=== PATIENT | female | born 1975 | race Caucasian/White ===

== ENCOUNTER 2021-01-14 13:37 | Emergency (ER) | payer SELFPAY ==
[~2021-01-14] VITALS: Ht 167.6 cm; Wt 68.9 kg
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
--- NOTE | 2021-01-14 14:52 | NUR ---
UNABLE TO GIVE URINE AT THIS TIME
--- NOTE | 2021-01-14 14:52 | NUR ---
SALINE LOCK ESTABLISHED, BLOOD DRAWN AND PICKED UP BY LAB
[2021-01-14] MEDS ORDERED: IV NS 0.9% 1,000 ML IV ONE (15:00)
[2021-01-14 15:08] LABS: BASOPHILS # (AUTO) 0.1 K/uL (0.0-0.2); BASOPHILS % (AUTO) 0.8 % (0.0-2.0); EOSINOPHILS % (AUTO) 5.3 % (0.0-6.0); HEMATOCRIT 39 % (33-45); HEMOGLOBIN 13.1 g/dL (11.5-14.8); LYMPHOCYTES # (AUTO) 2.2 K/uL (0.8-4.8); MEAN CORPUSCULAR HGB CONC 34 g/dl (31.0-36.0); MEAN CORPUSCULAR VOLUME 92 fL (82-100); MONOCYTES # (AUTO) 0.5 K/uL (0.1-1.30); MONOCYTES % (AUTO) 8.2 % (2.0-12.0); NEUTROPHILS # (AUTO) 3.5 K/uL (1.8-8.9); NEUTROPHILS % (AUTO) 52.7 % (43.0-81.0); PLATELET COUNT (AUTO) 211 K/uL (150-450); WHITE BLOOD COUNT (AUTO) 6.6 K/uL (4.3-11.0)
[2021-01-14 15:19] LABS: CALCIUM, SERUM 8.2 mg/dL (8.5-10.1); CARBON DIOXIDE 27 mmol/L (21-32); CHLORIDE 107 mmol/L (98-107); CREATININE 0.7 mg/dL (0.6-1.3); GLUCOSE 91 mg/dL (74-106); POTASSIUM 3.8 mmol/L (3.5-5.1); SODIUM SERUM 142 mmol/L (136-145); UREA NITROGEN, BLOOD 14 mg/dL (7-18)
[2021-01-14] MEDS ORDERED: IOHEXOL-300 100 ML VIAL IV ONE (15:24)
[2021-01-14] MEDS ORDERED: IV NS 0.9% 250 ML IV ONE (15:24)
[2021-01-14] MEDS ORDERED: CT SWABBABLE VALVE TRANS SET 1 EA INFUS.SET MC ONE (15:25)
[2021-01-14 15:28] LABS: ALANINE AMINOTRANSFERASE 19 U/L (12-78); ALBUMIN 3.9 g/dL (3.4-5.0); ALKALINE PHOSPHATASE 32 U/L (46-116); ASPARTATE AMINOTRANSFERASE 15 U/L (15-37); BILIRUBIN,DIRECT 0.1 mg/dL (0.0-0.2); BILIRUBIN,TOTAL 0.4 mg/dL (0.2-1.0); TOTAL PROTEIN, SERUM 7.4 g/dL (6.4-8.2)
--- NOTE | 2021-01-14 15:28 | NUR ---
TAKEN TO CT
--- NOTE | 2021-01-14 15:50 | NUR ---
BACK FROM CT
[2021-01-14] MEDS ORDERED: IBUP-1955 PO (17:15)
[2021-01-14 18:16] VITALS: BP 120/71
--- NOTE | 2021-01-14 18:16 | NUR ---
Patient discharged to home in stable condition. Written and verbal after care instructions given. Patient verbalizes understanding of instruction.IV removed. Catheter intact and site benign. Pressure and 4x4 applied to site. No bleeding noted.
== END 2021-01-14 18:16 | disposition home or self-care (01) ==
LOC: ER 13:37
DX: M79.10 Myalgia, unspecified site (principal); E86.0 Dehydration; R51.9 Headache, unspecified; R42 Dizziness and giddiness; R07.89 Other chest pain; R10.9 Unspecified abdominal pain; Z90.89 Acquired absence of other organs; V49.49XA Driver injured in collision with other motor vehicles in traffic accident, initial encounter; Y93.89 Activity, other specified; Y92.413 State road as the place of occurrence of the external cause; Y99.8 Other external cause status
CPT/HCPCS: 36415; 70450; 71260; 72125; 74177; 80048; 80076; 84484; 84702; 85025; 93005; 96360; 99285; J7030; J7050; Q9967

== ENCOUNTER 2024-04-15 11:27 | Emergency (ER) | payer OTHER ==
[~2024-04-15] VITALS: Ht 167.6 cm; Wt 69.9 kg
[~2024-04-15 11:27] MED LIST: IBUP-1955 PO
[2024-04-15 11:35] VITALS: BP 141/68; TEMP 98; O2SAT 97
[2024-04-15] MEDS ORDERED: IBUPROFEN 400 MG TABLET ONE (13:08)
[2024-04-15] MEDS: IBUPROFEN 400 MG TABLET PO ONE (13:09)
[2024-04-15] MEDS ORDERED: MELO-107 PO (15:12)
== END 2024-04-15 15:16 | disposition home or self-care (01) ==
LOC: ER 11:36
DX: M79.642 Pain in left hand (principal); M65.4 Radial styloid tenosynovitis [de Quervain]
CPT/HCPCS: 73130-TC